=== PATIENT | male | born 1950 | race Caucasian/White ===

== ENCOUNTER 2016-05-16 01:51 | Emergency (ER) | payer BC ==
[~2016-05-16] VITALS: Ht 167.6 cm; Wt 72.6 kg
--- OUTSIDE RECORDS SUMMARY | 2016-05-16 01:57 | XMS REPORT | Continuity of Care Document ---
Author Author [facility] Organization [facility] Address Unknown Phone Unavailable Care Team Providers Care Developmental Therapist Name Role Phone Peter Cancino PCP [phone] Source Comments Some departments are not documenting in the electronic medical record. If you do not see the information that you expected, contact Release of Information in the Health Information Management department at [phone] for further assistance in locating additional records.[facility] Active Allergies and Adverse Reactions Allergen Noted Date Severity Reactions Comments Seasonal Allergies 07/06/2014 RHINITIS pollen Current Medications Prescription Sig. Disp. Refills Start End Date Status Date aspirin 325 mg tablet Take 325 mg by mouth Active daily. chlorpheniramine(+) Take 4 mg by mouth as Active (CHLOR-TRIMETRON) 4 mg Needed. tablet pseudoephedrine (SUDAFED) Take 60 mg by mouth as Active 30 mg tablet Needed. rasagiline(+) (AZILECT) 1 Take 1 mg by mouth daily. Active mg tablet pramipexole (MIRAPEX) 1 Take 1 Tab by mouth twice 180 Tab 3 12/04/19 Active mg tablet daily. 16 carbidopa/levodopa TAKE 1 TABLET BY MOUTH 90 Tab 5 04/12/20 Active (SINEMET) 25/100 mg THREE TIMES DAILY 16 tablet Active Problems Problem Noted Date Hypersomnia 09/27/2014 Overview: 09/27/2014 [place] Sleepiness Scale: 13 09/19/2015 [place] Sleepiness Scale: 12 L ast Assessment & Plan: Hopefully reducing Mirapex (pramipexole) will help. Parkinson disease (HCC) 07/06/2014 Overview: Symptoms began in 2011, initial symptoms was chin tremor. Diagnosed with Parkinson's disease in 2014. Atypical PD Features: None 07/07/2014 Total Mentation Score: 1 Total Activities of Daily Living Score: 5 Total Motor Exam: 22 Total UPDRS Score: 28 PDQ 39 IMPACT PDQ Total Percent: 8.97 % Patient was evaluated by Speech therapist, Tracie Mahan. 09/27/2014 PDQ8 Impact: 9% Patient was evaluated by Occupational Therapist, Carmen Cisse. 09/19/2015 PDQ8 Total %: 19 L ast Assessment & Plan: Symptoms are worse since the last visit. I recommended reducing Mirapex (pramipexole) 1 mg twice a day. Patient was started on Sinemet 25/100 half tablet twice a day and given instructions to increase it to one tablet three times a day. Side effects of the medication were discussed and he was given a list of common side effects. Patient will call us in 2-3 weeks for medication adjustments if needed. Insomnia 07/06/2014 Last Assessment & Plan: His symptoms are stable. No medication changes were recommended during the current visit. Most Recent Encounters Date Type Specialty Providers Description 04/22/2016 Telephone Neurology Kojo Gonzalez MD Follow-up Phone Call 04/11/2016 Refill Neurology Kojo Gonzalez MD 04/08/2016 Telephone Neurology Kojo Gonzalez MD Medication Question Social History Tobacco Use Types Packs/Day Years Used Date Former Smoker Quit: 03/05/1999 Smokeless Tobacco: Never Used Alcohol Use Drinks/Week oz/Week Comments Yes 3 to 7 drinks a week Last Filed Vital Signs Vital Sign Reading Time Taken Blood Pressure 129/82 09/19/2015 11:28 AM CDT Pulse 65 09/19/2015 11:28 AM CDT Temperature - - Respiratory Rate - - Height 1.65 m (5' 4.96") 09/19/2015 11:28 AM CDT Weight 75.9 kg (167 lb 5.3 oz) 09/19/2015 11:28 AM CDT Body Mass Index 27.88 09/19/2015 11:28 AM CDT Oxygen Saturation - - Plan of Care Date Type Specialty Providers Description 09/17/2016 Appointment Neurology Kojo Gonzalez MD [address] [facility] [address] [place] [address] [phone] (Fax) Health Maintenance Due Date Last Done Comments Hepatitis C Screening 1950 Physical (Comprehensive) 01/02/1959 Exam Pertussis Vaccine 01/02/1963 Tetanus Vaccine 01/02/1969 Colorectal Cancer 01/02/2002 Screening Shingles Vaccine 2012 Influenza Vaccine 01/04/2016 Results from Last 3 Months Not on file
[2016-05-16] MEDS ORDERED: ASPI-808 PO (02:09)
[2016-05-16] MEDS ORDERED: PRAM1TAB5 PO (02:09)
[2016-05-16] MEDS ORDERED: CARB1TAB19 PO (02:09)
[2016-05-16] MEDS ORDERED: fentaNYL INJECTION 100 MCG/2 ML AMP IVP STA ×2 (02:36→04:55)
[2016-05-16] MEDS ORDERED: NS IV 1000 ML 1,000 ML IV ONE (02:36)
--- NOTE | 2016-05-16 02:37 | ED Abdominal Pain ---
General Chief Complaint: Abdominal/GI Problems Stated Complaint: PAIN IN RT SIDE,UPPER ABD Nursing Triage Note: Pt c/o RUQ pain that started around 2300. Sepsis Screen: No Definite Risk Source of Information: Patient Exam Limitations: No Limitations History of Present Illness Time Seen By Provider: 02:27 Initial Comments Here with report of right upper quadrant abdominal pain that started about 11 p.m. He did eat food last evening but usually does not have problems by seafood. Pain is persistent. Denies nausea or vomiting. Pain radiates to the back. Denies fever or chills. Timing/Duration: 4-6 Hours Severity/Quality: Moderate, Severe Location: RUQ Radiation: Back Activities at Onset: None Modifying Factors: Worsens With Eating, Worsens With Movement Associated Symptoms: Back PainNo Chest Pain, No Fever/Chills, No Nausea/ Vomiting, No Swelling/Mass in Abdomen, No Weakness Allergies and Home Medications Allergies Coded Allergies: No Known Drug Allergies (Unverified , 05/16/16) Home Medications Aspirin 325 Mg Tablet 325 MG PO DAILY (Reported) Carbidopa/Levodopa 1 Each Tablet 1 EACH PO TID (Reported) Hydrocodone/Acetaminophen 1 Each Tablet #10 1-2 EACH PO Q6H PRN PRN PAIN Prescribed by: PAM CRAIN on 05/16/16 0502 Ondansetron 4 Mg Tab.rapdis #8 4 MG PO Q6H PRN PRN NAUSEA/VOMITING Prescribed by: PAM CRAIN on 05/16/16 0502 Pramipexole Di-HCl 1 Mg Tablet 1 MG PO BID (Reported) Review of Systems Constitutional: see HPINo chills, No fever EENTM: No Symptoms Reported Respiratory: No Symptoms ReportedDenies Cough, Denies Shortness of Air Cardiovascular: No Symptoms ReportedDenies Chest Pain, Denies Edema Gastrointestinal: Abdominal PainDenies Diarrhea, Denies Nausea, Denies Rectal Bleeding, Denies Vomiting Genitourinary: No Symptoms Reported Musculoskeletal: no symptoms reported Skin: no symptoms reported All Other Systems Reviewed Negative Unless Noted: Yes Past Guoybyy-Nyypzu-Uoyccs Hx Patient Social History Alcohol Use: Regular Use Recreational Drug Use: No Smoking Status: Never a Smoker Recent Foreign Travel: No Contact w/Someone Who Travel: No Recent Infectious Disease Expo: No Recent Hopitalizations: No Physical Abuse Screen: No Sexual Abuse: No Seasonal Allergies Seasonal Allergies: No Surgeries HX Surgeries: No Respiratory Hx Respiratory Disorders: No Cardiovascular Hx Cardiac Disorders: No Neurological Hx Neurological Disorders: Yes Neurological Disorders: Parkinson's Disease Reproductive System Hx Reproductive Disorders: No Genitourinary Hx Genitourinary Disorders: No Gastrointestinal Hx Gastrointestinal Disorders: No Musculoskeletal Hx Musculoskeletal Disorders: No Endocrine Hx Endocrine Disorders: No HEENT HX ENT Disorders: No Cancer Hx Cancer: No Psychosocial Hx Psychiatric Problems: No Integumentary HX Skin/Integumentary Disorder: No Blood Transfusions Hx Blood Disorders: No Reviewed Nursing Assessment Reviewed/Agree w Nursing PMH: Yes Family Medical History Significant Family History: No Pertinent Family Hx Physical Exam Vital Signs VS - Last 72 Hours, by Label 05/16/16 05/16/16 01:58 03:04 Temp 96.5 Pulse 80 Resp 18 B/P 118/94 Pulse Ox 99 88 O2 Delivery Room Air Nasal Cannula O2 Flow Rate 2 Capillary Refill : Less Than 3 Seconds General Appearance: WD/WN no apparent distress Neck: full range of motion supple Respiratory: lungs clear normal breath sounds Cardiovascular: regular rate, rhythm no murmur Peripheral Pulses: 2+ Dorsalis Pedis (R), 2+ Left Dors-Pedis (L), 2+ Radial Pulses (R), 2+ Radial Pulses (L) Gastrointestinal: softNo guarding, No rebound, tenderness (right upper quadrant) Extremities: non-tender normal inspection Back: normal inspection no CVA tenderness no vertebral tenderness Neurologic/Psychiatric: alert oriented x 3 Skin: normal color warm/dry Progress/Results/Core Measures Results/Orders Lab Results Laboratory Tests Test 05/16/16 02:32 Range/Units Alanine Aminotransferase (ALT/SGPT) 29 0-55 U/L Albumin 4.2 3.2-4.5 G/DL Alkaline Phosphatase 47 40-136 U/L Amylase Level 90 25-125 U/L Anion Gap 10 5-14 MMOL/L Aspartate Amino Transf (AST/SGOT) 27 5-34 U/L BUN/Creatinine Ratio 18 Basophils # (Auto) 0.0 0.0-0.1 10^3/uL Basophils (%) (Auto) 0 0-10 % Blood Urea Nitrogen 19 H 7-18 MG/DL Calcium Level 9.1 8.5-10.1 MG/DL Carbon Dioxide Level 21 21-32 MMOL/L Chloride Level 105 98-107 MMOL/L Creatinine 1.08 0.60-1.30 MG/DL Eosinophils # (Auto) 0.3 0.0-0.3 10^3/uL Eosinophils (%) (Auto) 4 0-10 % Estimat Glomerular Filtration Rate > 60 Glucose Level 112 H 70-105 MG/DL Hematocrit 39 L 40-54 % Hemoglobin 13.6 13.3-17.7 G/DL Lipase 36 8-78 U/L Lymphocytes # (Auto) 0.6 L 1.0-4.0 X 10^3 Lymphocytes (%) (Auto) 8 L 12-44 % Magnesium Level 2.3 1.8-2.4 MG/DL Mean Corpuscular Hemoglobin 31 25-34 PG Mean Corpuscular Hemoglobin Concent 35 32-36 G/DL Mean Corpuscular Volume 88 80-99 FL Mean Platelet Volume 9.6 7.4-10.4 FL Monocytes # (Auto) 0.4 0.0-1.0 X 10^3 Monocytes (%) (Auto) 5 0-12 % Neutrophils # (Auto) 5.9 1.8-7.8 X 10^3 Neutrophils (%) (Auto) 82 H 42-75 % Platelet Count 252 130-400 10^3/uL Potassium Level 4.4 3.6-5.0 MMOL/L Red Blood Count 4.46 4.35-5.85 10^6/uL Red Cell Distribution Width 12.7 10.0-14.5 % Sodium Level 136 135-145 MMOL/L Total Bilirubin 0.4 0.1-1.0 MG/DL Total Protein 6.8 6.4-8.2 G/DL White Blood Count 7.1 4.3-11.0 10^3/uL My Orders Orders-PAM CRAIN MD Amylase (05/16/16 02:36) Cbc With Automated Diff (05/16/16 02:36) Comprehensive Metabolic Panel (05/16/16 02:36) Lipase (05/16/16 02:36) Magnesium (05/16/16 02:36) Fentanyl Injection (Sublimaze Injection (05/16/16 02:36) Saline Lock/Iv-Start (05/16/16 02:36) Ns Iv 1000 Ml (Sodium Chloride 0.9%) (05/16/16 02:36) Ondansetron Injection (Zofran Injectio (05/16/16 03:15) Ct Abdomen/Pelvis W (05/16/16 03:01) Ondansetron Injection (Zofran Injectio (05/16/16 02:55) O2 (05/16/16 03:05) Iohexol Injection (Omnipaque 350 Mg/Ml 1 (05/16/16 03:45) Ns (Ivpb) (Sodium Chloride 0.9% Ivpb Bag (05/16/16 03:45) Ketorolac Injection (Toradol Injection) (05/16/16 04:15) Famotidine Injection (Pepcid Injection) (05/16/16 04:15) Fentanyl Injection (Sublimaze Injection (05/16/16 04:55) Hydrocodone/Apap 5/325 Tablet (Lortab 5 (05/16/16 04:55) Medications Given in ED Current Medications Medications Dose Ordered Sig/Aviva Route Start Time Stop Time Status Last Admin Dose Admin Iohexol 100 ml ONCE ONCE IV 05/16/16 03:45 05/16/16 03:46 DC 05/16/16 03:45 100 ML Ondansetron HCl 4 mg ONCE ONCE IVP 05/16/16 03:15 05/16/16 03:16 DC 05/16/16 03:03 4 MG Sodium Chloride 100 ml ONCE ONCE IV 05/16/16 03:45 05/16/16 03:46 DC 05/16/16 03:45 80 ML Sodium Chloride 1,000 ml @ 0 mls/hr Q0M ONCE IV 05/16/16 02:36 05/16/16 02:37 DC 05/16/16 02:56 999 MLS/HR Vital Signs/I&O Vital Sign - Last 12Hours 05/16/16 05/16/16 01:58 03:04 Temp 96.5 Pulse 80 Resp 18 B/P 118/94 Pulse Ox 99 88 O2 Delivery Room Air Nasal Cannula O2 Flow Rate 2 Blood Pressure Mean: 102 Progress Note : Progress Note Seen and evaluated. IV, labs, normal saline 1 L bolus, fentanyl 50 g IV and Zofran [address] abdomen and pelvis with contrast ordered. Monitor patient. Pain markedly reduced after fentanyl. 0450: CT complete. Overall no acute findings except for mild diverticulosis. Patient has some mild pain to the right upper abdomen and posterior. Fentanyl 25 g IV and hydrocodone 5/325 one tab by mouth given. We will attempt outpatient therapy for likely peptic ulcer disease. He is to follow up with his DrZahra jacinto for recheck and further evaluation and surgical referral. All of this was discussed with the patient who agreed. 0520: Improved and states it is tolerable and would like to go home. Discharged home with return precautions. Patient verbalize understanding instructions and agreement with plan. Diagnostic Imaging Diagonstic Imaging: CT Plain Films/CT/US/NM/MRI: abdomen, pelvis Comments No free fluid. No free air. The bowel is normal in caliber. The liver, spleen , pancreas, gallbladder and kidneys are unremarkable. Mild diverticulosis. Reviewed: Reviewed Night Hawk Study, Reviewed by Me Departure Impression Impression: Primary Impression: Right upper quadrant abdominal pain Disposition: HOME, SELF-CARE Condition: Improved Departure-Patient Inst. Decision time for Depature: 04:58 Referrals: AMADO CLAYTON MD (PCP) Primary Care Physician Patient Instructions: Acute Abdomen (Belly Pain), Adult (DC), Peptic Ulcers (DC ) Add. Discharge Instructions: All discharge instructions reviewed with patient and/or family. Voiced understanding. Take medications as directed. Follow-up with your Dr. jacinto for recheck and further evaluation. You should follow-up with a surgeon for further evaluation as well including upper endoscopy (scope) as indicated. Your DrZahra can assist in surgical referral. You may take puff-wkd-odcijem omeprazole 20 mg daily for stomach upset. Clear liquid diet for 24 hours and then advance as tolerated. Return for worse pain, fever, vomiting, blood in your vomit or stool, weakness, breathing problems or other concerns as needed. Scripts Ondansetron (Ondansetron Odt)4 Mg Tab.rapdis4 Mg PO Q6H PRN NAUSEA/VOMITING #8 TAB Prov:PAM CRAIN MD 05/16/16 Hydrocodone/Acetaminophen (Hydrocodon -Acetaminophen 5-325)1 Each Tablet1-2 Each PO Q6H PRN PAIN #10 TAB Prov:PAM CRAIN MD 05/16/16 Copy Copies To 1: AMADO CLAYTON MD, TIMOTHY D MD May 16, 2016 02:37
[2016-05-16 02:44] LABS: BASOPHILS % (AUTO) 0 % (0-10); EOSINOPHILS # (AUTO) 0.3 10^3/uL (0.0-0.3); EOSINOPHILS % (AUTO) 4 % (0-10); LYMPHOCYTES # (AUTO) 0.6 X 10^3 (1.0-4.0); LYMPHOCYTES % (AUTO) 8 % (12-44); MEAN CORPUSCULAR HEMOGLOBIN 31 PG (25-34); MEAN CORPUSCULAR HGB CONC 35 G/DL (32-36); MEAN CORPUSCULAR VOLUME 88 FL (80-99); MEAN PLATELET VOLUME 9.6 FL (7.4-10.4); MONOCYTES # (AUTO) 0.4 X 10^3 (0.0-1.0); MONOCYTES % (AUTO) 5 % (0-12); NEUTROPHILS # (AUTO) 5.9 X 10^3 (1.8-7.8); NEUTROPHILS % (AUTO) 82 % (42-75); PLATELET COUNT 252 10^3/uL (130-400); RED BLOOD COUNT 4.46 10^6/uL (4.35-5.85); RED CELL DISTRIBUTION WIDTH 12.7 % (10.0-14.5); WHITE BLOOD COUNT 7.1 10^3/uL (4.3-11.0)
[2016-05-16] MEDS ORDERED: ONDANSETRON 4 MG/2 ML (SDV) Z0FRAN ONE (02:55)
[2016-05-16 02:56] LABS: ALANINE AMINOTRANSFERASE 29 U/L (0-55); ALBUMIN 4.2 G/DL (3.2-4.5); AMYLASE 90 U/L (25-125); ANION GAP 10 MMOL/L (5-14); ASPARTATE AMINO TRANSFERASE 27 U/L (5-34); BILIRUBIN,TOTAL 0.4 MG/DL (0.1-1.0); BLOOD UREA NITROGEN 19 MG/DL (7-18); BUN/CREATININE RATIO 18; CALCIUM 9.1 MG/DL (8.5-10.1); CARBON DIOXIDE 21 MMOL/L (21-32); CHLORIDE 105 MMOL/L (98-107); CREATININE SERUM 1.08 MG/DL (0.60-1.30); GFR ESTIMATED > 60; GLUCOSE 112 MG/DL (70-105); LIPASE 36 U/L (8-78); MAGNESIUM 2.3 MG/DL (1.8-2.4); POTASSIUM 4.4 MMOL/L (3.6-5.0); SODIUM 136 MMOL/L (135-145); TOTAL PROTEIN 6.8 G/DL (6.4-8.2)
[2016-05-16] MEDS ORDERED: ONDANSETRON 4 MG/2 ML (SDV) Z0FRAN IVP ONE (03:15)
[2016-05-16] MEDS ORDERED: IOHEXOL 350 MG/ML 100 ML (OMNIPAQUE 350) VIAL IV ONE (03:45)
[2016-05-16] MEDS ORDERED: NS 100 ML (IVPB) BAG IV ONE (03:45)
[2016-05-16] MEDS ORDERED: FAMOTIDINE 20MG/2ML IV (PEPCID) IV STA (04:15)
[2016-05-16] MEDS ORDERED: KETOROLAC 30 MG/ML VIAL IVP STA (04:15)
[2016-05-16] MEDS ORDERED: HYDROcodone/APAP 5 MG/325 MG (LORTAB) TAB PO STA (04:55)
[2016-05-16] MEDS ORDERED: ONDA4TAB11 PO (05:02)
[2016-05-16] MEDS ORDERED: HYDR-3812 PO (05:02)
[2016-05-16 05:27] VITALS: BP 118/88
--- NOTE | 2016-05-16 07:17 | Diagnostic Imaging Report ---
PROCEDURE: CT abdomen and pelvis with contrast. TECHNIQUE: Multiple contiguous axial images were obtained through the abdomen and pelvis after administration of intravenous contrast. INDICATION: Right lower quadrant abdominal pain. FINDINGS: There is minimal dependent atelectasis in the lung bases. There is no focal hepatic or splenic lesion is identified, however, there are calcified granulomas throughout the spleen. There is no biliary ductal dilatation. Gallbladder has a normal appearance. No pancreatic, adrenal or renal lesion is detected. There is no free fluid in the abdomen or pelvis. There is no evidence of bowel obstruction. There are numerous sigmoid diverticula without evidence of pericolonic inflammation or abscess. Partially opacified urinary bladder is unremarkable. Incidental note is made of an approximately 8.5 x 8.5 x 3.7 cm lipoma in the left lateral abdominal wall. IMPRESSION: No CT evidence of acute abdominal or pelvic abnormality. Dictated by: Dictated on workstation # [id number]
== END 2016-05-16 05:27 | disposition home or self-care (01) ==
LOC: EDUNIT# 01:51 → ER 01:54
DX: R10.11 Right upper quadrant pain (principal); G20 Parkinson's disease; Z79.82 Long term (current) use of aspirin; Z79.899 Other long term (current) drug therapy
CPT/HCPCS: 36415; 74177; 80053; 82150; 83690; 83735; 85025; 96361; 96374; 96375; 96376

== ENCOUNTER → 2016-05-20 | Outpatient (CLI) | payer BC ==
[~2016-05-20] MED LIST: ASPI-808 PO; CARB1TAB19 PO; HYDR-3812 PO; ONDA4TAB11 PO; PRAM1TAB5 PO
--- OUTSIDE RECORDS SUMMARY | 2016-05-20 06:51 | XMS REPORT | Continuity of Care Document ---
Author Author [facility] Organization [facility] Address Unknown Phone Unavailable Care Team Providers Care Professor Of Communication And Writing Name Role Phone Peter Cancino PCP [phone] Source Comments Some departments are not documenting in the electronic medical record. If you do not see the information that you expected, contact Release of Information in the Health Information Management department at [phone] for further assistance in locating additional records.[facility] Active Allergies and Adverse Reactions Allergen Noted [...] Problem Noted Date Hypersomnia 09/27/2014 Overview: 09/27/2014 [place] Sleepiness Scale: 13 09/19/2015 [place] Sleepiness Scale: 12 L ast Assessment & [...] 09/17/2016 Appointment Neurology Kojo Gonzalez MD [address] [facility] [address] [place] [address] [phone] (Fax) Health Maintenance Due Date Last Done Comments Hepatitis C Screening 1950 Physical (Comprehensive) 01/02/1959 Exam Pertussis Vaccine 01/02/1963 Tetanus Vaccine 01/02/1969 Colorectal Cancer 01/02/2002 Screening Shingles Vaccine 2012 Influenza Vaccine 01/04/2016 Results from Last 3 Months Not on file
--- NOTE | 2016-05-20 08:40 | Diagnostic Imaging Report ---
PROCEDURE: US Gallbladder. TECHNIQUE: Multiple real-time grayscale images were obtained over the right upper quadrant in various projections. INDICATION: Right upper quadrant pain. FINDINGS: The visualized portions of the pancreas appear unremarkable. The liver is fairly homogeneous with no focal lesion. There is hepatopetal flow demonstrated in the portal vein. The gallbladder demonstrates no stones or wall thickening. The CBD is 4 mm in caliber. The right kidney is 11 cm in length with no hydronephrosis or focal lesion. No fluid collection in the upper right quadrant. Sonographic Maloney sign is reportedly negative. IMPRESSION: Unremarkable exam. Dictated by: Dictated on workstation # [id number]
== END ==
LOC: RAD 06:47
PROVIDERS: ATTEND Family Medicine
DX: R10.11 Right upper quadrant pain (principal)
CPT/HCPCS: 76705

== ENCOUNTER 2018-07-08 23:23 | Emergency (ER) | payer BC ==
[~2018-07-08] VITALS: Ht 167.6 cm; Wt 72.6 kg
[~2018-07-08 23:23] MED LIST changes: +ACHD5005 PO; -HYDR-3812 PO
[2018-07-08] MEDS ORDERED: RX-TRIMETH/SULFA. 160-800 MG (BACTRIM DS) TAB PPK#2 PO STA (23:50)
[2018-07-08] MEDS ORDERED: TETANUS,DIPTH,PERTUSS P/F (BOOSTRIX) 0.5 ML VIAL IM STA (23:50)
[2018-07-08] MEDS ORDERED: LIDOCAINE 1% INJ 20 ML 20 ML VIAL ONE (23:52)
--- NOTE | 2018-07-09 | NUR ---
[address] YING TO LEFT THUMB LAC.
[2018-07-09] MEDS ORDERED: SULF1TAB35 PO (00:12)
--- NOTE | 2018-07-09 00:12 | ED Upper Extremity ---
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 DENIES BEING ON BLOOD THINNERS. 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 Nursing Sepsis Screen: No Definite Risk Allergies and Home Medications Allergies Coded Allergies: No Known Drug Allergies (Unverified , 05/16/16) Home Medications Aspirin 325 Mg Tablet, 325 MG PO DAILY, (Reported) Carbidopa/Levodopa 1 Each Tablet, 1 EACH PO TID, (Reported) Hydrocodone Bit/Acetaminophen 1 Each Tablet, 1-2 EACH PO Q6H PRN for PAIN Prescribed by: PAM CRAIN on 05/16/16 0502 Ondansetron 4 Mg Tab.rapdis, 4 MG PO Q6H PRN for NAUSEA/VOMITING Prescribed by: PAM CRAIN on 05/16/16 0502 Pramipexole Di-HCl 1 Mg Tablet, 1 MG PO BID, (Reported) Past Mxillvi-Xytvqx-Ciltan Hx Patient Social History Alcohol Use: Denies Use Number of Drinks Today: Alcohol Beverage of Choice: Wine Recreational Drug Use: No Smoking Status: Never a Smoker Recent Foreign Travel: No Contact w/Someone Who Travel: No Recent Infectious Disease Expo: No Recent Hopitalizations: No Immunizations Up To Date Tetanus Booster (TDap): More than 5yrs Seasonal Allergies Seasonal Allergies: No Past Medical History Surgeries: Yes (RIGHT EYE CATARACT SX) Respiratory: No Cardiac: No Neurological: Yes Parkinson's Disease Reproductive Disorders: No Genitourinary: No Gastrointestinal: No Musculoskeletal: No Endocrine: No Cancer: No Psychosocial: No Integumentary: No Blood Disorders: No Family Medical History No Pertinent Family Hx Physical Exam Vital Signs Vital Signs - First Documented 07/08/18 23:35 Temp 96.9 Pulse 76 Resp 18 B/P (MAP) 119/83 (95) Capillary Refill : Less Than 3 Seconds Height, Weight, BMI Height: 5'6" Weight: 160lbs. oz. 72.752780ur; BMI Method:Stated Progress/Results/Core Measures Results/Orders My Orders Orders - ASUNCION YING DO Dipht,Pertuss(Acell),Tet Adult (Boostrix (07/08/18 23:50) Wound Dressing-Ed (07/08/18 23:50) Thumb Spika (07/08/18 23:50) Rx-Trimeth/Sulfameth Ds Tab (Rx-Bactrim/ (07/08/18 23:50) Lidocaine 1% Inj 20 Ml (Xylocaine 1% Inj (07/08/18 23:52) Medications Given in ED Current Medications Medications Dose Ordered Sig/Aviva Route Start Time Stop Time Status Last Admin Dose Admin Lidocaine HCl 20 ml STK-MED ONCE .ROUTE 07/08/18 23:52 07/08/18 23:54 DC 07/08/18 23:55 20 ML Vital Signs/I&O 07/08/18 23:35 Temp 96.9 Pulse 76 Resp 18 B/P (MAP) 119/83 (95) Blood Pressure Mean: 95 Departure Impression Primary Impression: Laceration of left thumb Additional Impression: Hzpyaoeslv-tumjbdaaa-serphxy (DPT) vaccination administered at current visit Disposition: 01 HOME, SELF-CARE Condition: Stable Departure-Patient Inst. Referrals: AMADO CLAYTON MD (PCP) Primary Care Physician Patient Instructions: Laceration Repair With Climax (DC), SPLINT CARE, Diphtheria and Tetanus Toxoids, and Acellular Pertussis Vaccine Add. Discharge Instructions: CLEAN WOUND TWICE A DAY WITH ANTIBACTERIAL SOAP AND WATER ON A Q-TIP, AND APPLY FRESH BANDAID, OTHERWISE KEEP CLEAN AND DRY WEAR SPLINT AT ALL TIMES SUTURES REMOVED IN 10 DAYS--RETURN TO ER FOR REMOVAL All discharge instructions reviewed with patient and/or family. Voiced understanding. Scripts Sulfamethoxazole/Trimethoprim (Bactrim Ds Tablet) 1 Each Tablet 1 EACH PO BID, #20 TAB Prov: ASUNCION YING DO 07/09/18 ASUNCION YING DO Jul 09, 2018 00:12
[2018-07-09 00:33] VITALS: BP 119/83
== END 2018-07-09 00:33 | disposition home or self-care (01) ==
LOC: EDUNIT# 23:23 → ER 23:24
DX: S61.012A Laceration without foreign body of left thumb without damage to nail, initial encounter (principal); G20 Parkinson's disease; Z23 Encounter for immunization; Z79.82 Long term (current) use of aspirin; W26.0XXA Contact with knife, initial encounter
CPT/HCPCS: 90715

== ENCOUNTER → 2020-11-17 | Outpatient (CLI) | payer MEDICARE, OTHER ==
[~2020-11-17] MED LIST changes: +SULF1TAB38 PO
--- NOTE | 2020-11-17 15:53 | Diagnostic Imaging Report ---
INDICATION: Increasing left shoulder pain. No history of trauma. FINDINGS: 3 views. The glenohumeral joint is in good alignment. Articulating surfaces are smooth. Joint spaces are well maintained. No hypertrophic changes about the glenoid or humerus. AC joint shows good alignment with moderate arthritic changes and mild hypertrophic changes. There are no fractures. No soft tissue calcification about the shoulder. 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 Dictated by: Dictated on workstation # [id number]
== END ==
LOC: RAD 14:08
PROVIDERS: ATTEND Family Medicine
DX: M19.012 Primary osteoarthritis, left shoulder (principal)
CPT/HCPCS: 73030

== ENCOUNTER 2021-01-02 05:35 | Outpatient (CLI) | payer MEDICARE, OTHER ==
[~2021-01-02] VITALS: Ht 167.6 cm; Wt 69.4 kg
[2021-01-02] MEDS ORDERED: ZALE10CA PO (13:39)
[2021-01-02] MEDS ORDERED: TRZ50T PO (13:39)
[2021-01-02] MEDS ORDERED: CARB1TAB41 PO (13:39)
[2021-01-02] MEDS ORDERED: AMAN100C18 PO (13:39)
[2021-01-02] MEDS ORDERED: PSEU-137 PO (13:48)
[2021-01-02] MEDS ORDERED: CLOB15CR3 TP (13:48)
[2021-01-02] MEDS ORDERED: CHLO4TAB36 PO (13:48)
== END 2021-01-02 15:43 ==
LOC: PREOP 05:35
PROVIDERS: ATTEND Surgery
DX: Z01.818 Encounter for other preprocedural examination (principal)

== ENCOUNTER 2021-01-09 08:12 | Day surgery (SDC) | payer MEDICARE, OTHER ==
[~2021-01-09] VITALS: Ht 167.6 cm; Wt 69.4 kg
[~2021-01-09 08:12] MED LIST changes: +AMAN100C18 PO; +CARB1TAB41 PO; +CHLO4TAB36 PO; +CLOB15CR3 TP; +PSEU-137 PO; +TRZ50T PO; +ZALE10CA PO
[2021-01-09 08:30] VITALS: BP 142/85
[2021-01-09] MEDS ORDERED: LACTATED RINGERS 1,000 ML IV STA (08:34)
[2021-01-09] MEDS ORDERED: PROPOFOL INJECTION 50 ML IV ONE (09:25)
[2021-01-09 09:50] VITALS: BP 114/65
--- NOTE | 2021-01-09 09:51 | Progress Note-Post Operative ---
Post-Operative Progess Note Surgeon (s)/Dairy Clerk (s) Surgeon NORRIS LOW DO Dairy Clerk: na Pre-Operative Diagnosis screening colonoscopy Post-Operative Diagnosis diverticulosis Procedure & Operative Findings Date of Procedure 01/09/21 Procedure Performed/Findings colonoscopy Anesthesia Type per clin nurse spec Estimated Blood Loss Estimated blood loss (mL): none Specimens/Packing Specimens Removed na NORRIS LOW DO Jan 09, 2021 09:51
--- NOTE | 2021-01-09 09:52 | Discharge Inst-Simple/Standard ---
Discharge Inst-Standard Patient Instructions/Follow Up Plan of Care/Instructions/FU: 10 years Boubacar. Any issues before that be seen at that time. Activity as Tolerated: Yes Discharge Diet: Regular Diet NORRIS LOW DO Jan 09, 2021 09:52
--- NOTE | 2021-01-09 09:53 | Anesthesia-General Post-Op ---
MAC Patient Condition Mental Status/LOC: Same as Preop Cardiovascular: Satisfactory Nausea/Vomiting: Absent Respiratory: Satisfactory Pain: Controlled Complications: Absent Post Op Complications Complications None Follow Up Care/Instructions Patient Instructions None needed. Anesthesiology Discharge Order Discharge Order Patient is doing well, no complaints, stable vital signs, no apparent adverse anesthesia problems. No complications reported per nursing. EDISON PHAM CRNA Jan 09, 2021 09:53
[2021-01-09 09:55] VITALS: BP 116/69
[2021-01-09 10:24] VITALS: BP 118/65
--- NOTE | 2021-01-09 12:46 | OPERATIVE REPORT ---
DATE OF SERVICE: 01/09/2021 PREOPERATIVE DIAGNOSIS: Screening colonoscopy. POSTOPERATIVE DIAGNOSIS: Diverticulosis. PROCEDURE: Colonoscopy. SURGEON: Norris Hamlin DO ANESTHESIA: Per HOT BLASTER. ESTIMATED BLOOD LOSS: None. COMPLICATIONS: None. INDICATIONS: The patient is a 71-year-old male needing screening colonoscopy. He understands risks and benefits and wishes to proceed. Consent was signed in the chart. DESCRIPTION OF PROCEDURE: The patient was taken to the endoscopy suite, placed in left lateral recumbent position. Timeout was performed. Digital rectal exam was performed. No palpable polyps, masses or ulcerations. Scope was inserted in the rectum and advanced all the way to cecum with minimal difficulty. Prep was adequate. Scope was then slowly retracted back. There were no polyps, masses or ulcerations in the cecum, ascending, transverse, descending and sigmoid colon. Throughout the colon, there is diverticulosis present. Once in the rectum, scope was retroflexed noting no other pathology. Scope was returned to its normal position, slowly withdrawn until completely removed. The patient tolerated procedure well without any complications, taken to recovery room in stable condition. RECOMMENDATIONS: High-fiber diet. We would recommend repeat colonoscopy in 10 years. Any issues before that be seen at that time. If any family history of colon cancer, which will then within the 5-year followup. Job ID: [id number] DocumentID: [id number] Dictated Date: 01/09/2021 09:56:00 Weed Cooking Operator Date: 01/09/2021 12:46:09 Dictated By: NORRIS HAMLIN DO
== END 2021-01-09 10:26 | disposition home or self-care (01) ==
LOC: ENDO 08:12
PROVIDERS: ATTEND Surgery
DX: Z12.11 Encounter for screening for malignant neoplasm of colon (principal); K57.30 Diverticulosis of large intestine without perforation or abscess without bleeding; G20 Parkinson's disease; J30.2 Other seasonal allergic rhinitis; K21.9 Gastro-esophageal reflux disease without esophagitis; G62.9 Polyneuropathy, unspecified; Z79.899 Other long term (current) drug therapy; Z79.82 Long term (current) use of aspirin; Z80.3 Family history of malignant neoplasm of breast; Z80.8 Family history of malignant neoplasm of other organs or systems; Z79.02 Long term (current) use of antithrombotics/antiplatelets; Z87.891 Personal history of nicotine dependence

== ENCOUNTER 2021-04-04 11:36 | Outpatient (RCR) | payer MEDICARE, OTHER ==
[~2021-04-04 11:36] MED LIST changes: -AMAN100C18 PO; +AMAN100C20 PO; -PSEU-137 PO; +PSEU-182 PO
== END 2021-04-24 08:50 | disposition home or self-care (01) ==
PROVIDERS: ATTEND Family Medicine
DX: M19.012 Primary osteoarthritis, left shoulder (principal)

== ENCOUNTER 2023-01-01 10:35 | Outpatient (RCR) | payer MEDICARE, OTHER ==
[~2023-01-01 10:35] MED LIST changes: -CARB1TAB19 PO; +CARB1TAB32 PO
== END 2023-01-02 | disposition home or self-care (01) ==
PROVIDERS: ATTEND Family Medicine
DX: M19.012 Primary osteoarthritis, left shoulder (principal); J45.909 Unspecified asthma, uncomplicated

== ENCOUNTER 2023-03-19 08:41 | Outpatient (RCR) | payer MEDICARE, OTHER | END 2023-04-03 | disposition home or self-care (01) | PROVIDERS: ATTEND Psychiatry & Neurology Neurology | DX: G20.B2 Parkinson's disease with dyskinesia, with fluctuations (principal) ==

== ENCOUNTER 2023-04-07 11:00 | Outpatient (RCR) | payer MEDICARE, OTHER | END 2023-04-07 17:00 | disposition home or self-care (01) | PROVIDERS: ATTEND Psychiatry & Neurology Neurology | DX: G20.B2 Parkinson's disease with dyskinesia, with fluctuations (principal) ==